=== PATIENT | female | born 1975 | race Caucasian/White ===

== ENCOUNTER 2020-01-09 18:07 | Emergency (ER) | payer OTHER, MEDICAID, SELFPAY ==
[2020-01-09] VITALS (7 sets, daily range): BP systolic 142–182; BP diastolic 79–106; PULSE 75–99; RESP 16–22; TEMP 37.3; O2SAT 95–98; BMI 24.0
--- NOTE | 2020-01-09 18:28 | ED.CHESTPAIN ---
HPI - Chest Pain General Chief Complaint: Chest Pain Stated Complaint: elevated blood pressure Time Seen by Provider: 01/09/20 18:13 Source: patient Mode of arrival: Ambulatory History of Present Illness HPI narrative: Chief complaint: Chest pain with hypertension and headache. History of present illness: The patient is a 44-year-old female with admits that she has been under lot of stress and anxious lately. She has a history of Troup's disease. She has developed hypertension over the last week associated with being lightheaded, difficulty finding her words, periods of confusion, and that her face has hurt to smile as well as her teeth aching associated with a headache and chest pain. She has developed some left arm discomfort associated with the headache. The patient was on fludrocortisone with the does decreased by her physical medicine specialist. She was diagnosed to have Troup's disease when she developed hypotension and had a positive ACTH stress test. She he denies a history of migraines, past history of headaches any fall or injury to her head or neck as well as asthma myocardial infarction heart murmur diabetes mellitus. She periodically has blurred vision but denies any loss of vision diplopia. She has had phonophobia with shortness of breath on exertion and walking nondescript chest pain palpitations and dizziness as well as nausea without vomiting diarrhea or change in bowel habits. She has had no urinary symptoms. Her primary care physician is Dr. Bray and her physical medicine specialist is . The patient complains that she has had pain in her left mouth especially sometimes when breathing through her nose she can feel the air moving it crossed her left maxillary and mandibular molars and it hurts to bite down. She has had no dental pathology and has never been evaluated for possible trigeminal neuralgia. Related Data Previous Rx's Medication Instructions Recorded hydrocortisone sod succ (PF) 100 mg IM SEE INSTRUCTIONS #2 bot 07/22/16 [Solu-Cortef Act-O-Vial (PF)] hydrocortisone [Cortef] 30 mg PO TIDCC #90 tab 02/02/18 ondansetron 4 mg disintegrating 4 mg PO Q6-8H PRN #20 tab 10/14/18 tablet fludrocortisone 0.1 mg tablet 0.2 mg PO QDAY #60 tab 10/07/19 lorazepam [Ativan] 0.5 mg PO TID PRN #15 tab 01/09/20 naproxen [Naprosyn] 500 mg PO BID PRN #20 tab 01/09/20 Allergies Allergy/AdvReac Type Severity Reaction Status Date / Time ciprofloxacin [CIPROFLOXACIN] Allergy Mild joint Verified 01/09/20 18:24 swelling and pain Review of Systems Review of Systems Narrative: The patient's review of systems were all negative except for those mentioned in the history of present illness. Patient History Surgical History History of anterior cruciate ligament surgery (Resolved 1993) Family History Father No problems noted. Mother No problems noted. Brother No problems noted. Sister No problems noted. Sister No problems noted. Grandfather Melanoma Cancer Skin cancer Grandmother No problems noted. Grandfather No problems noted. Grandmother No problems noted. Social History marital status: Smoking Status: Never smoker alcohol intake: current (ON OCCASION ) substance use type: does not use Smoking Status: Never smoker Exam Narrative Exam Narrative: PHYSICAL EXAM: CONSTITUTIONAL: Awake, Alert, Oriented, Coherent, Cooperative in NAD but very anxious. Does not appear toxic or ill. HEAD: AT/NC EENT: PERRL, FROM of eyes, no discharge, no nystagmus No drainage from the ears, Tympanic membranes intact bilaterally, clear EAC No epistaxis or nasal drainage Oral mucosa is moist and pink, posterior pharynx is without erythema or exudate. When she complained that her teeth were hurting the posterior 3 maxillary molars and mandibular molars all appear to be in good dental repair but were tender to touch and tapping with a tongue blade. There was no evidence of gingivitis. NECK: Supple, no obvious JVD, Trachea is midline without stridor, no palpable LN or masses. The patient had full range of motion of her neck to flexion extension right there was absolutely no nuchal rigidity. SPINE: No gross deformity, no palpable tenderness of the cervical, thoracic, lumbar or sacral spine. No CVA tenderness. THORAX: No deformity, retractions, chest wall tenderness, subcutaneous air or crepitice. LUNGS: Clear with symmetrical breath sounds without respiratory distress HEART: Normal heart tones, regular rhythm and rate without murmur. ABDOMEN: Soft, non-tender, normal bowel sounds without guarding, rebound, rigidity or palpable mass EXTREMITIES: No edema, cyanosis, deformity or tenderness. SKIN: No rash, bruising, petechiae or purpura. NEURO: Awake, alert, oriented, conversive, cranial nerves II-XII are symmetrical and normal, moves all 4 extremities and is ambulatory. Initial Vital Signs Initial Vital Signs: Vital Signs Temperature 99.2 F 01/09/20 18:24 Pulse Rate 79 01/09/20 18:24 Respiratory Rate 16 01/09/20 18:24 Blood Pressure 167/105 H 01/09/20 18:24 Pulse Oximetry 98 01/09/20 18:24 Course Course Course Narrative: 2156 the patient's chest x-ray is negative CT of her head is negative. The patient was complaining of her left jaw and teeth hurting. She states that when she breathes through her nose her teeth are hurting. A CT scan of the patient's facial bones were obtained. Tapping the posterior 3 molars over the maxilla and mandible were tender to palpation. There was no bony deformity erythema or warmth palpable. Her last blood pressure was significantly improved at 1145/85. CT of the facial bones have been completed however the report remains pending. I spoke with the patient's who states that she is under tremendous amount of stress. I explained that I believe most of these symptoms are secondary to acute anxiety. The patient asked if I thought they were due to anxiety and I informed her that I think that there is a big component of that. The plan is to not place the patient on any antihypertensive agents and have her follow-up with her primary care physician and physical medicine specialist. However I will probably prescribed a short course of Ativan for acute anxiety. I a.m. attempting to discharge the patient as soon as the CT scan is completed. Her strange facial complaints of pain and discomfort may be all secondary to anxiety but trigeminal neuralgia in needs to also be arm evaluated. 0136: The CT of the patient's facial bones, reveals no acute osseous abnormality. No sinusitis or periodontal disease. The patient will be started on Naprosyn 500 mg b.i.d. for pain and discomfort. She was advised to follow-up with her physical medicine specialist and primary care physician to monitor her blood pressure. She is to keep a log of when she checks her blood pressure and the associated symptoms. For her acute anxiety I will prescribe 0.5 mg of Ativan. Orders Ordered: Discontinued Medications Aspirin (Aspirin Chew) 324 mg PO NOW ONE Stop: 01/09/20 18:30 Last Admin: 01/09/20 18:51 Dose: 324 mg Documented by: SHARDA Hydralazine HCl (Apresoline) 2.5 mg IV NOW ONE Stop: 01/09/20 20:48 Last Admin: 01/09/20 21:38 Dose: 2.5 mg Documented by: SPENCER Sodium Chloride (Normal Saline 0.9%) 1,000 mls @ 150 mls/hr IV CONT IVAN Last Admin: 01/09/20 18:52 Dose: 150 mls/hr Documented by: SHARDA Ketorolac Tromethamine (Toradol) 30 mg IV NOW ONE Stop: 01/09/20 20:42 Last Admin: 01/09/20 21:35 Dose: 30 mg Documented by: SPENCER Lorazepam (Ativan) 0.5 mg IV NOW ONE Stop: 01/09/20 18:30 Last Admin: 01/09/20 18:51 Dose: 0.5 mg Documented by: SHARDA Lorazepam (Ativan) 0.5 mg IV NOW ONE Stop: 01/09/20 20:42 Last Admin: 01/09/20 21:35 Dose: 0.5 mg Documented by: SPENCER Vital Signs Vital signs: Vital Signs - 8 hr 01/09/20 18:24 01/09/20 18:39 01/09/20 19:00 Temperature 99.2 F Pulse Rate 79 Pulse Rate [Orthostatic Lying] 99 H Pulse Rate [Orthostatic Sitting] 85 Pulse Rate [Orthostatic Standing] 90 Respiratory Rate 16 Blood Pressure 167/105 H Blood Pressure [Left Arm] 165/100 H Blood Pressure [Orthostatic Lying] 162/95 H Blood Pressure [Orthostatic Sitting] 167/99 H Blood Pressure [Orthostatic Standing] 168/98 H Blood Pressure [Right Arm] 182/106 H Pulse Oximetry 98 01/09/20 19:44 01/09/20 21:38 01/09/20 21:48 Temperature Pulse Rate 85 85 75 Pulse Rate [Orthostatic Lying] Pulse Rate [Orthostatic Sitting] Pulse Rate [Orthostatic Standing] Respiratory Rate 21 16 Blood Pressure 147/85 H Blood Pressure [Left Arm] Blood Pressure [Orthostatic Lying] Blood Pressure [Orthostatic Sitting] Blood Pressure [Orthostatic Standing] Blood Pressure [Right Arm] 148/89 H 142/87 H Pulse Oximetry 95 97 01/09/20 22:30 Temperature Pulse Rate 84 Pulse Rate [Orthostatic Lying] Pulse Rate [Orthostatic Sitting] Pulse Rate [Orthostatic Standing] Respiratory Rate 22 Blood Pressure Blood Pressure [Left Arm] 142/79 H Blood Pressure [Orthostatic Lying] Blood Pressure [Orthostatic Sitting] Blood Pressure [Orthostatic Standing] Blood Pressure [Right Arm] Pulse Oximetry 97 MDM - Chest Pain Medical Records Data Attestation: I reviewed the patient's medical records. Lab Data Attestation: I reviewed the patient's lab results. Result diagrams: 01/09/20 18:30 01/09/20 18:30 Labs: Lab Results 01/09/20 01/09/20 01/09/20 Range/Units 18:30 18:30 18:30 WBC 11.5 H (4.5-11.0) X10^3/uL RBC 4.28 (4.0-5.2) X10^6/uL Hgb 13.3 (12.0-16.0) g/dL Hct 39.1 (36-46) % MCV 91.4 (80-100) fL MCH 31.1 (26-34) PG MCHC 34.0 (30-36) % RDW 12.5 (11.6-14.8) % Plt Count 298 (150-400) X10^3/uL Neut % (Auto) 79.9 H (50-75) % Lymph % (Auto) 12.3 L (25-40) % Swisher % (Auto) 7.0 (3-14) % Eos % (Auto) 0.3 L (2-4) % Baso % (Auto) 0.5 (0-2) % Neut # (Auto) 9200 H (5373-8098) /uL Lymph # (Auto) 1400 (4250-0249) /uL Swisher # (Auto) 800 (0-900) /uL Eos # (Auto) 0 (0-450) /uL Baso # (Auto) 100 (0-100) /uL ESR 7 (0-20) MM/HR Sodium 140 (137-145) mmol/L Potassium 4.0 (3.4-5.1) mmol/L Chloride 104 (98-107) mmol/L Carbon Dioxide 26 (22-32) mmol/L BUN 16 (7-17) mg/dL Creatinine 0.90 (0.52-1.04) mg/dL Estimated GFR > 60.0 (>60) mL/min BUN/Creatinine Ratio 17.8 (6-22) Glucose 116 H (70-100) mg/dL Calcium 9.6 (8.4-10.2) mg/dL Total Bilirubin 0.3 (0.2-1.3) mg/dL AST 24 (14-36) IU/L ALT 22 (<35) IU/L Alkaline Phosphatase 30 L (38-126) U/L Total Creatine Kinase 31 (30-135) U/L CK-MB (CK-2) TNP CK-MB (CK-2) Rel Index TNP Troponin I < 0.012 (0.01-0.034) ng/mL C-Reactive Protein (<1.0) mg/dL Total Protein 7.3 (6.3-8.2) g/dL Albumin 4.5 (3.5-5.0) g/dL Globulin 2.8 (1.7-4.1) g/dL Albumin/Globulin Ratio 1.6 (1.0-2.8) Lipase 103 (23-300) U/L 01/09/20 Range/Units 18:30 WBC (4.5-11.0) X10^3/uL RBC (4.0-5.2) X10^6/uL Hgb (12.0-16.0) g/dL Hct (36-46) % MCV (80-100) fL MCH (26-34) PG MCHC (30-36) % RDW (11.6-14.8) % Plt Count (150-400) X10^3/uL Neut % (Auto) (50-75) % Lymph % (Auto) (25-40) % Swisher % (Auto) (3-14) % Eos % (Auto) (2-4) % Baso % (Auto) (0-2) % Neut # (Auto) (3564-9199) /uL Lymph # (Auto) (5509-4492) /uL Swisher # (Auto) (0-900) /uL Eos # (Auto) (0-450) /uL Baso # (Auto) (0-100) /uL ESR (0-20) MM/HR Sodium (137-145) mmol/L Potassium (3.4-5.1) mmol/L Chloride (98-107) mmol/L Carbon Dioxide (22-32) mmol/L BUN (7-17) mg/dL Creatinine (0.52-1.04) mg/dL Estimated GFR (>60) mL/min BUN/Creatinine Ratio (6-22) Glucose (70-100) mg/dL Calcium (8.4-10.2) mg/dL Total Bilirubin (0.2-1.3) mg/dL AST (14-36) IU/L ALT (<35) IU/L Alkaline Phosphatase (38-126) U/L Total Creatine Kinase (30-135) U/L CK-MB (CK-2) CK-MB (CK-2) Rel Index Troponin I (0.01-0.034) ng/mL C-Reactive Protein < 0.5 (<1.0) mg/dL Total Protein (6.3-8.2) g/dL Albumin (3.5-5.0) g/dL Globulin (1.7-4.1) g/dL Albumin/Globulin Ratio (1.0-2.8) Lipase (23-300) U/L ECG Data Attestation: I personally reviewed and interpreted this ECG as follows: Interpretation: The patient's EKG of January 09 at 18:2 8:17 a.m. revealed a normal sinus rhythm with a ventricular rate of 72 intervals are normal QTC is 393 milliseconds. [place] is normal. The patient has inverted T-waves in leads III and V1. There are no other acute diagnostic ST segment changes noted. The rest of her EKG is normal there is no evidence of ischemia. Discharge Plan Departure Patient Disposition: Home Clinical Impression: Troup's disease, Atypical chest pain, Acute anxiety, Atypical facial pain Hypertension Qualifiers: Hypertension type: unspecified Qualified Code(s): I10 - Essential (primary) hypertension Discharge Date/Time: 01/09/20 23:16 Instructions: DI for Atypical Chest Pain, DI for Anxiety -- Adult, DI for Headache, DI for Chest Pain Activity Restrictions/Additional Instructions: Check your blood pressure only once. Do not frank and required multiple blood pressure is 1 after the other. Keep a log of your blood pressures and the associated symptoms: Headache change in vision backache, chest pain, shortness of breath, and facial pain. Follow-up with your physical medicine specialist and your primary care physician to manage your blood pressure. For acute stress and anxiety take the Ativan as prescribed. For acute pain and discomfort take the Naprosyn as prescribed. Otherwise take your medications as prescribed by your physical medicine specialist. Prescriptions: New naproxen [Naprosyn] 500 mg tablet 500 mg PO BID PRN (Reason: pain) Qty: 20 RF: 0 lorazepam [Ativan] 0.5 mg tablet 0.5 mg PO TID PRN (Reason: anxiety) Qty: 15 RF: 0 No Action hydrocortisone sod succ (PF) [Solu-Cortef Act-O-Vial (PF)] 100 MG/2 ML recon soln 100 mg IM SEE INSTRUCTIONS Qty: 2 RF: 0 hydrocortisone [Cortef] 10 MG tablet 30 mg PO TIDCC Qty: 90 RF: 3 ondansetron 4 mg tablet,disintegrating 4 mg PO Q6-8H PRN (Reason: nausea and vomiting) Qty: 20 RF: 0 fludrocortisone 0.1 mg tablet 0.2 mg PO QDAY Qty: 60 RF: 0 Referrals: Ranjit Jaramillo MD [Primary Care Provider] -
--- NOTE | 2020-01-09 18:29 | DI.CT.S_ITS ---
PROCEDURE: CT HEAD/BRAIN WO CON INDICATIONS: Hypertension with headache TECHNIQUE: Noncontrast 4.5 mm thick angled axial sections acquired from the foramen magnum to the vertex, with coronal and sagittal reformats. For radiation dose reduction, the following was used: automated exposure control, adjustment of mA and/or kV according to patient size. COMPARISON: None. FINDINGS: Image quality: Excellent. CSF spaces: Basal cisterns are patent. No extra-axial fluid collections. Ventricles are normal in size and shape. Brain: No midline shift. No intracranial masses or hemorrhage. Mcgowan-white matter interface is normal. Skull and face: Calvarium and visualized facial bones are intact, without suspicious lesions. Sinuses: Visualized sinuses and mastoids are clear. IMPRESSION: Normal head CT. Dictated by: Jimbo Gallegos M.D. on 01/09/2020 at 18:59 Approved by: Jimbo Gallegos M.D. on 01/09/2020 at 19:00
--- NOTE | 2020-01-09 18:32 | DI.RAD.S_ITS ---
PROCEDURE: XR CHEST 2V INDICATIONS: Addisons disease, Hypertension, Chest Pain, SOB Headache TECHNIQUE: 2 views of the chest were acquired. COMPARISON: None. FINDINGS: Surgical changes and devices: None. Lungs and pleura: Lungs are clear. No pleural effusions or pneumothorax. Mediastinum: Mediastinal contours are normal. Heart size is normal. Bones and chest wall: No suspicious bony abnormalities. Soft tissues appear unremarkable. IMPRESSION: No acute cardiopulmonary disease. Dictated by: Jimbo Gallegos M.D. on 01/09/2020 at 19:00 Approved by: Jimbo Gallegos M.D. on 01/09/2020 at 19:00
[2020-01-09 18:42] LABS: Add Manual Diff / Slide Review NO; Basophils Absolute Auto 100 /uL (0-100); Basophils Percent Auto 0.5 % (0-2); Eosinophils Absolute Auto 0 /uL (0-450); Eosinophils Percent Auto 0.3 % (2-4); Hematocrit 39.1 % (36-46); Hemoglobin 13.3 g/dL (12.0-16.0); Lymphocytes Absolute Auto 1400 /uL (1100-4500); Lymphocytes Percent Auto 12.3 % (25-40); Mean Corpuscular Hemoglobin 31.1 PG (26-34); Mean Corpuscular Volume 91.4 fL (80-100); Monocytes Absolute Auto 800 /uL (0-900); Neutrophils Absolute Auto 9200 /uL (1500-7000); Neutrophils Percent Auto 79.9 % (50-75); Platelet Count 298 X10^3/uL (150-400); Red Blood Cell Count 4.28 X10^6/uL (4.0-5.2); Red Cell Distribution Width 12.5 % (11.6-14.8); White Blood Cell Count 11.5 X10^3/uL (4.5-11.0)
[2020-01-09] MEDS: ASPIRIN 81 MG CHEW TAB 324 MG PO (18:51)
[2020-01-09] MEDS: LORazepam 2 MG/ML INJ 0.5 MG IV ×2 (18:51→21:35)
[2020-01-09] MEDS: SODIUM CHLORIDE 0.9% 1,000 ML 150 ML IV (18:52)
[2020-01-09 18:58] LABS: Alanine Aminotransferase 22 IU/L (<35); Albumin 4.5 g/dL (3.5-5.0); Albumin Globulin Ratio 1.6 (1.0-2.8); Alkaline Phosphatase 30 U/L (38-126); Aspartate Aminotransferase 24 IU/L (14-36); BUN Creatinine Ratio 17.8 (6-22); Bilirubin Total 0.3 mg/dL (0.2-1.3); Blood Urea Nitrogen 16 mg/dL (7-17); Calcium 9.6 mg/dL (8.4-10.2); Carbon Dioxide 26 mmol/L (22-32); Chloride 104 mmol/L (98-107); Creatine Kinase 31 U/L (30-135); Estimated Glomerular Filt Rate > 60.0 mL/min (>60); Globulin 2.8 g/dL (1.7-4.1); Glucose 116 mg/dL (70-100); HEMOLYSIS < 15 (0-50); Lipase 103 U/L (23-300); Sodium 140 mmol/L (137-145); Total Protein 7.3 g/dL (6.3-8.2)
[2020-01-09 19:10] LABS: Troponin I < 0.012 ng/mL (0.01-0.034)
--- NOTE | 2020-01-09 20:44 | DI.CT.S_ITS ---
PROCEDURE: CT FACIAL BONES W CON INDICATIONS: servere left jawpain. left max and frandy molar pain and tnder TECHNIQUE: After the administration of intravenous contrast, 2.5 mm axial sections acquired from the mid-neck to the frontal sinuses, with coronal and sagittal reformats. For radiation dose reduction, the following was used: automated exposure control, adjustment of mA and/or kV according to patient size. COMPARISON: None. FINDINGS: Image quality: Excellent. Soft tissues: No edema, masses, or fluid collections. No enlarged lymph nodes. Vascular: Visualized vascular structures appear patent throughout. Bony vascular foramina and canals appear normal. Bones: Facial bones appear intact, without fractures, erosions, or destruction. Visualized portions of the skull base and auditory canals also appear normal. Sinuses: Paranasal sinuses are aerated without fluid levels, mucosal thickening, or mucoceles. Mastoid air cells are aerated. IMPRESSION: No acute osseous abnormalities. Dictated by: Jimbo Gallegos M.D. on 01/09/2020 at 22:24 Approved by: Jimbo Gallegos M.D. on 01/09/2020 at 22:27
[2020-01-09 21:11] LABS: Erythrocyte Sedimentation Rate 7 MM/HR (0-20)
[2020-01-09 21:12] LABS: C-Reactive Protein Quant < 0.5 mg/dL (<1.0)
[2020-01-09] MEDS: KETOROLAC 60 MG/2 ML VIAL 30 MG IV (21:35)
[2020-01-09] MEDS: HYDRALAZINE 20 MG/ML VIAL 2.5 MG IV (21:38)
--- NOTE | 2020-01-17 13:28 | PC.NURSE ---
NS 150ml/hr inf stopped at time of discharge 2315 vol infused 600mls
== END 2020-01-09 23:16 | disposition home or self-care (01) ==
LOC: ED 18:36
PROVIDERS: Emergency Provider Emergency Medicine; PCP Family Medicine
DX: E27.1 Primary adrenocortical insufficiency (principal); R07.89 Other chest pain; F41.9 Anxiety disorder, unspecified; G50.1 Atypical facial pain; I10 Essential (primary) hypertension
CPT/HCPCS: 36415; 70450; 70487; 71046; 80053; 82550; 83690; 84484; 85025; 85651; 86140; 93005; 96361; 96374; 96375; 96376; 99285; J0360; J1885; J2060; Q9967

== ENCOUNTER → 2021-01-17 11:24 | Outpatient (CLI) | payer OTHER, MEDICAID, SELFPAY ==
[2021-01-17 12:36] LABS: COVID19 -Nasal RAPID Negative (Negative)
== END ==
PROVIDERS: PCP Family Medicine; Visit Provider Family Medicine
DX: Z20.822 Contact with and (suspected) exposure to COVID-19 (principal)
CPT/HCPCS: 87635

== ENCOUNTER → 2021-02-13 16:55 | Outpatient (CLI) | payer OTHER, MEDICAID, SELFPAY ==
[2021-02-13 17:11] LABS: Add Manual Diff / Slide Review NO; Basophils Absolute Auto 100 /uL (0-100); Eosinophils Absolute Auto 200 /uL (0-450); Eosinophils Percent Auto 2.6 % (2-4); Hematocrit 34.8 % (36-46); Hemoglobin 11.7 g/dL (12.0-16.0); Lymphocytes Absolute Auto 2000 /uL (1100-4500); Lymphocytes Percent Auto 32.1 % (25-40); Mean Corpuscular HGB Conc 33.7 % (30-36); Mean Corpuscular Hemoglobin 30.5 PG (26-34); Mean Corpuscular Volume 90.4 fL (80-100); Monocytes Absolute Auto 600 /uL (0-900); Monocytes Percent Auto 9.4 % (3-14); Neutrophils Absolute Auto 3400 /uL (1500-7000); Neutrophils Percent Auto 54.9 % (50-75); Platelet Count 252 X10^3/uL (150-400); Red Blood Cell Count 3.85 X10^6/uL (4.0-5.2); Red Cell Distribution Width 13.6 % (11.6-14.8); White Blood Cell Count 6.2 X10^3/uL (4.5-11.0)
== END ==
PROVIDERS: PCP Family Medicine; Referring Provider Obstetrics & Gynecology; Visit Provider Obstetrics & Gynecology
DX: N92.0 Excessive and frequent menstruation with regular cycle (principal)
CPT/HCPCS: 36415; 85025

== ENCOUNTER → 2021-02-15 11:00 | Outpatient (CLI) | payer OTHER, MEDICAID, SELFPAY ==
[2021-02-15 12:56] LABS: Free T4, Direct Thyroxine 1.16 ng/dL (0.78-2.19)
[2021-02-15 13:10] LABS: Thyroid Stimulating Hormone 0.994 uIU/mL (0.47-4.68)
== END ==
PROVIDERS: PCP Family Medicine; Referring Provider Obstetrics & Gynecology; Visit Provider Obstetrics & Gynecology
DX: N93.9 Abnormal uterine and vaginal bleeding, unspecified (principal)
CPT/HCPCS: 36415; 84439; 84443

== ENCOUNTER → 2021-02-22 14:13 | Outpatient (CLI) | payer OTHER, MEDICAID, SELFPAY ==
[2021-02-22 14:42] LABS: COVID19 -Nasal RAPID Negative (Negative)
== END ==
PROVIDERS: PCP Family Medicine; Visit Provider Physician Assistant
DX: Z20.822 Contact with and (suspected) exposure to COVID-19 (principal)
CPT/HCPCS: 87635

== ENCOUNTER 2021-03-23 11:00 | Emergency (ER) | payer OTHER, MEDICAID, SELFPAY ==
[2021-03-23] VITALS (7 sets, daily range): BP systolic 118–144; BP diastolic 63–82; PULSE 58–83; RESP 13–22; TEMP 36.7; O2SAT 95–100; BMI 21.4
[2021-03-23] MEDS: SODIUM CHLORIDE 0.9% 1,000 ML 1000 ML IV (11:26)
[2021-03-23] MEDS: METOCLOPRAMIDE 10 MG/2 ML INJ IV (11:27)
[2021-03-23] MEDS: diphenhydrAMINE 50 MG/ML VIAL 25 MG IV (11:28)
[2021-03-23] MEDS: KETOROLAC 60 MG/2 ML VIAL 15 MG IV (11:29)
--- NOTE | 2021-03-23 12:02 | DI.CT.S_ITS ---
PROCEDURE: CT HEAD/BRAIN WO CON INDICATIONS: worst headache of live TECHNIQUE: Noncontrast 4.5 mm thick angled axial sections acquired from the foramen magnum to the vertex, with coronal and sagittal reformats. For radiation dose reduction, the following was used: automated exposure control, adjustment of mA and/or kV according to patient size. COMPARISON: [facility], CT, CT HEAD/BRAIN WO CON, 01/09/2020, 18:39. FINDINGS: Image quality: Excellent. CSF spaces: Basal cisterns are patent. No extra-axial fluid collections. Ventricles are normal in size and shape. Brain: No midline shift. No intracranial masses or hemorrhage. Mcgowan-white matter interface is normal. Skull and face: Calvarium and visualized facial bones are intact, without suspicious lesions. Sinuses: Visualized sinuses and mastoids are clear. IMPRESSION: No acute intracranial hemorrhage is seen. No acute intracranial process is seen. Dictated by: Dennis Arrington M.D. on 03/23/2021 at 12:01 Approved by: Dennis Arrington M.D. on 03/23/2021 at 12:02
[2021-03-23 12:14] LABS: Add Manual Diff / Slide Review NO; Basophils Absolute Auto 0 /uL (0-100); Basophils Percent Auto 0.7 % (0-2); Eosinophils Absolute Auto 0 /uL (0-450); Eosinophils Percent Auto 0.4 % (2-4); Hematocrit 37.3 % (36-46); Hemoglobin 12.6 g/dL (12.0-16.0); Lymphocytes Absolute Auto 1900 /uL (1100-4500); Mean Corpuscular HGB Conc 33.8 % (30-36); Mean Corpuscular Hemoglobin 30.5 PG (26-34); Mean Corpuscular Volume 90.2 fL (80-100); Monocytes Absolute Auto 600 /uL (0-900); Monocytes Percent Auto 8.9 % (3-14); Neutrophils Absolute Auto 4300 /uL (1500-7000); Platelet Count 279 X10^3/uL (150-400); Red Blood Cell Count 4.14 X10^6/uL (4.0-5.2); Red Cell Distribution Width 13.3 % (11.6-14.8); White Blood Cell Count 6.9 X10^3/uL (4.5-11.0)
[2021-03-23 12:21] LABS: Alanine Aminotransferase 19 IU/L (<35); Albumin 4.2 g/dL (3.5-5.0); Albumin Globulin Ratio 1.5 (1.0-2.8); Alkaline Phosphatase 27 U/L (38-126); Aspartate Aminotransferase 23 IU/L (14-36); BUN Creatinine Ratio 23.7 (6-22); Bilirubin Total 0.1 mg/dL (0.2-1.3); Blood Urea Nitrogen 14 mg/dL (7-17); Calcium 9.2 mg/dL (8.4-10.2); Carbon Dioxide 21 mmol/L (22-32); Chloride 108 mmol/L (98-107); Estimated Glomerular Filt Rate > 60.0 mL/min (>60); Globulin 2.8 g/dL (1.7-4.1); Glucose 107 mg/dL (70-100); HEMOLYSIS < 15 (0-50); Potassium 3.9 mmol/L (3.4-5.1); Sodium 135 mmol/L (137-145)
[2021-03-23 12:29] LABS: Pregnancy Test Serum,Qual Negative (Negative)
--- NOTE | 2021-03-23 13:27 | ED_ITS ---
HPI - Headache General Chief Complaint: Headache Stated Complaint: WOKE UP WITH MIGRAINE, VOMITING Time Seen by Provider: 03/23/21 11:14 Source: patient Mode of arrival: Family Vehicle Limitations: no limitations History of Present Illness HPI Narrative: Patient is a 45-year-old female history of [place]'s disease p resenting with worst headache of her life that started at 4:00 a.m. this morning. His she says it woke her from her sleep and is quite painful she is sensitive to light she feels nauseous. She says that she forgot to take her flurocortisone yesterday, however she took extra prednisone this morning to she was under stress along with the fludrocortisone. She denies any fever or chills. No numbness tingling or weakness. Just severe headache with some mild neck pain as well. She denies any nausea or vomiting MD Complaint: headache Onset description: sudden and awoke with symptoms Severity: severe Quality: constant Exacerbating factors: light and noise Related Data Home Medications Medication Instructions Recorded Confirmed prednisone 5 mg tablet 5 mg PO BID tab 02/15/21 03/23/21 Previous Rx's Medication Instructions Recorded fludrocortisone 0.1 mg tablet 0.2 mg PO QDAY #60 tab 10/07/19 lorazepam [Ativan] 0.5 mg PO TID PRN #15 tab 01/09/20 naproxen [Naprosyn] 500 mg PO BID PRN #20 tab 01/09/20 medroxyprogesterone 10 mg tablet 10 mg PO .COMPLEX #90 tab 02/13/21 Allergies Allergy/AdvReac Type Severity Reaction Status Date / Time ciprofloxacin [CIPROFLOXACIN] Allergy Mild joint Verified 03/23/21 13:47 swelling and pain Review of Systems Review of Systems Narrative: GENERAL: Denies chills, fatigue, malaise, fever, sweats, travel HEENT: Denies sinus pain, ear pain, sore throat, difficulty swallowing, neck pain RESPIRATORY: Denies dyspnea, cough, wheezing, hemoptysis, sputum. CARDIOVASCULAR: Denies chest pain, palpitations, orthopnea, edema GASTROINTESTINAL: Denies nausea, vomiting, abdominal pain, diarrhea, constipation, melena. : Denies dysuria, frequency, incontinence, hematuria, urinary retention, flank pain. MUSCULOSKELETAL: Denies weakness, joint pain, or bony pain SKIN: No rash, no erythema, no pruritus NEUROLOGIC:+ see HPI PSYCHIATRIC: No concerning psychosocial issues. 12 point review of systems is negative except for those stated above and HPI Patient History Medical History (Updated 03/23/21 @ 13:36 by Justine Vega DO) [place]'s disease Adrenal insufficiency (2010) Chicken pox (1989) CTS (carpal tunnel syndrome) (1991) Dysplastic nevus syndrome (1994) Plantar warts Surgical History History of anterior cruciate ligament surgery (1993) Family History Father No problems noted. Mother No problems noted. Brother No problems noted. Sister No problems noted. Sister No problems noted. Grandfather Melanoma Cancer Skin cancer Grandmother No problems noted. Grandfather No problems noted. Grandmother No problems noted. Social History marital status: Smoking Status: Never smoker alcohol intake: current substance use type: does not use Smoking Status: Never smoker alcohol intake frequency: 0-2 drinks per day Substance Use Type: does not use Exam Initial Vital Signs Initial Vital Signs: Vital Signs Temperature 98.1 F 03/23/21 11:14 Pulse Rate 83 03/23/21 11:14 Respiratory Rate 22 03/23/21 11:14 Blood Pressure 144/82 H 03/23/21 11:14 Pulse Oximetry 98 03/23/21 11:14 GENERAL: Alert 45-year-old female in dark room appears in pain and in no acute distress. HEENT: Head atraumatic,EOMI, pupils reactive, face symmetric, moist mucous membranes NECK: The neck is supple no Kernig or Brudzinski sign CARDIOVASCULAR: Regular rate and rhythm without murmurs, rubs or gallops. RESPIRATORY: Breath sounds equal bilaterally, no wheezes rales or rhonchi. ABDOMEN: Soft, nontender. Normoactive bowel sounds all 4 quadrants. No guarding or rebound. EXTREMITIES: Normal range of motion, no clubbing or edema. Neurovascularly intact NEUROLOGICAL: Alert and oriented x4.Normal gait and speech. Cranial nerves II through XII grossly intact. Manager Parking strength equal bilaterally able to move lower extremities SKIN: Warm, dry, no laceration, no petechiae, no rashes or lesions. Scores NIH Stroke Scale Level of Conciousness: Alert, keenly responsive Ask month/age: Answers both questions correctly. Open/close eyes, close hand: Performs both tasks correctly Best gaze horizontal: Normal Visual le: No visual loss Facial palsy: Normal symetrical movement Left arm drift: No drift for full 10 sec Right arm drift: No drift for full 10 sec Left leg drift: No drift for full 5 sec Right leg drift: No drift for full 5 sec Limb ataxia: Absent Sensory on face/arms/legs: Normal, no sensory loss Best language: No aphasia, normal Dysarthria: Normal Extinction or inattention: No abnormality Total NIH Stroke scale score: 0 Course Orders Ordered: ED Orders 03/23/21 11:19 Complete Blood Count AUTO DIFF Stat Comprehensive Metabolic Panel Stat Test Serum,Qual Stat 03/23/21 12:02 CT head/brain wo con Stat Discontinued Medications Diphenhydramine HCl (Diphenhydramine 50 Mg/Ml Vial) 25 mg IV NOW ONE Stop: 03/23/21 11:15 Last Admin: 03/23/21 11:28 Dose: 25 mg Documented by: MICHI Sodium Chloride (Normal Saline 0.9%) 1,000 mls @ 1,000 mls/hr IV BOLUS ONE Stop: 03/23/21 12:13 Last Infusion: 03/23/21 12:29 Dose: 0 mls/hr Documented by: Admin: 03/23/21 11:26 Dose: 1,000 mls/hr Documented by: MICHI Ketorolac Tromethamine (Ketorolac 60 Mg/2 Ml Vial) 15 mg IV NOW ONE Stop: 03/23/21 11:15 Last Admin: 03/23/21 11:29 Dose: 15 mg Documented by: MICHI Metoclopramide HCl (Metoclopramide 10 Mg/2 Ml Inj) 10 mg IV NOW ONE Stop: 03/23/21 11:15 Last Admin: 03/23/21 11:27 Dose: 10 mg Documented by: MICHI Vital Signs Vital signs: Vital Signs - 8 hr 03/23/21 11:14 03/23/21 11:40 03/23/21 12:00 Temperature 98.1 F Pulse Rate 83 76 77 Respiratory Rate 22 20 Blood Pressure 144/82 H Pulse Oximetry 98 100 100 03/23/21 12:53 03/23/21 13:00 03/23/21 13:30 Temperature Pulse Rate 74 58 L 59 L Respiratory Rate 13 20 22 Blood Pressure Pulse Oximetry 95 97 96 03/23/21 13:40 Temperature Pulse Rate 73 Respiratory Rate 19 Blood Pressure 118/63 Pulse Oximetry 96 MDM - Headache Lab Data Attestation: I reviewed the patient's lab results. Result diagrams: 03/23/21 11:19 03/23/21 11:19 Labs: Lab Results 03/23/21 03/23/21 03/23/21 Range/Units 11:19 11:19 11:19 WBC 6.9 (4.5-11.0) X10^3/uL RBC 4.14 (4.0-5.2) X10^6/uL Hgb 12.6 (12.0-16.0) g/dL Hct 37.3 (36-46) % MCV 90.2 (80-100) fL MCH 30.5 (26-34) PG MCHC 33.8 (30-36) % RDW 13.3 (11.6-14.8) % Plt Count 279 (150-400) X10^3/uL Neut % (Auto) 62.0 (50-75) % Lymph % (Auto) 28.0 (25-40) % [place] % (Auto) 8.9 (3-14) % Eos % (Auto) 0.4 L (2-4) % Baso % (Auto) 0.7 (0-2) % Neut # (Auto) 4300 (9125-2263) /uL Lymph # (Auto) 1900 (0641-9452) /uL [place] # (Auto) 600 (0-900) /uL Eos # (Auto) 0 (0-450) /uL Baso # (Auto) 0 (0-100) /uL Sodium 135 L (137-145) mmol/L Potassium 3.9 (3.4-5.1) mmol/L Chloride 108 H (98-107) mmol/L Carbon Dioxide 21 L (22-32) mmol/L BUN 14 (7-17) mg/dL Creatinine 0.59 (0.52-1.04) mg/dL Estimated GFR > 60.0 (>60) mL/min BUN/Creatinine Ratio 23.7 H (6-22) Glucose 107 H (70-100) mg/dL Calcium 9.2 (8.4-10.2) mg/dL Total Bilirubin 0.1 L (0.2-1.3) mg/dL AST 23 (14-36) IU/L ALT 19 (<35) IU/L Alkaline Phosphatase 27 L (38-126) U/L Total Protein 7.0 (6.3-8.2) g/dL Albumin 4.2 (3.5-5.0) g/dL Globulin 2.8 (1.7-4.1) g/dL Albumin/Globulin Ratio 1.5 (1.0-2.8) Serum , Qual Negative (Negative) Point of Care Testing Test Results Negative Glucose POC 112 Urine Dip Bedside Urine Glucose Negative Bedside Urine Bilirubin - Negative Bedside Urine Ketone - Negative Urine Specific [place] 1.025 Bedside Urine Occult Blood - Negative Bedside Urine pH 6 Bedside Urine Protein - Negative Bedside Urine Urobilinogen - Negative Bedside Urine Nitrite - Negative Bedside Urine Leukocytes - Negative Esterase Imaging Data CT scan - head: Radiologist's Impression: PROCEDURE: CT HEAD/BRAIN WO CON INDICATIONS: worst headache of live TECHNIQUE: Noncontrast 4.5 mm thick angled axial sections acquired from the foramen magnum to the vertex, with coronal and sagittal reformats. For radiation dose reduction, the following was used: automated exposure control, adjustment of mA and/or kV according to p atient size. COMPARISON: [facility], CT, CT HEAD/BRAIN WO CON, 01/09/2020, 18:39. FINDINGS: Image quality: Excellent. CSF spaces: Basal cisterns are patent. No extra-axial fluid collections. Ventricles are normal in size and shape. Brain: No midline shift. No intracranial masses or hemorrhage. [place]-white matter interface is normal. Skull and face: Calvarium and visualized facial bones are intact, without suspicious lesions. Sinuses: Visualized sinuses and mastoids are clear. IMPRESSION: No acute intracranial hemorrhage is seen. No acute intracranial process is seen. Dictated by: Dennis Arrington M.D. on 03/23/2021 at 12:01 MDM Narrative Medical decision making narrative: The patient is feeling significantly better after migraine cocktail. Worst headache of her life concern for subarachnoid however CT is negative. Pain continues to improve with medication and she is overall better and ready and able to go. She has no neurologic deficits. She states that she did miss 1 of her medications yesterday unknown if it is related to her headache. Discharge Plan Departure Patient Disposition: Home Clinical Impression: Migraine Instructions: DI for Migraine Activity Restrictions/Additional Instructions: *You have been diagnosed with migraine headache *What to do: At this time he likely had a migraine headache. His head CT blood work are overall reassuring. Recommend going home and resting today *Continue to take medications as directed Tylenol 1000 mg every 6 hours if needed for [id number] pain *Follow up with your primary care provider in 2-3 days *Return to ER if you should have worsening headache persistent vomiting or any new, worsening or concerning symptoms Prescriptions: No Action fludrocortisone 0.1 mg tablet 0.2 mg PO QDAY Qty: 60 RF: 0 medroxyprogesterone 10 mg tablet 10 mg PO .COMPLEX Qty: 90 RF: 1 prednisone 5 mg tablet 5 mg PO BID RF: 0 naproxen [Naprosyn] 500 mg tablet 500 mg PO BID PRN (Reason: pain) Qty: 20 RF: 0 lorazepam [Ativan] 0.5 mg tablet 0.5 mg PO TID PRN (Reason: anxiety) Qty: 15 RF: 0 Referrals: Ranjit Jaramillo MD [Primary Care Provider] -
== END 2021-03-23 13:48 | disposition home or self-care (01) ==
PROVIDERS: Emergency Provider Emergency Medicine; PCP Family Medicine
DX: G43.909 Migraine, unspecified, not intractable, without status migrainosus (principal)
CPT/HCPCS: 36415; 70450; 80053; 81003; 81025; 82962; 84703; 85025; 96361; 96374; 96375; 99284; J1200; J1885; J2765

== ENCOUNTER 2021-06-30 05:22 | Emergency (ER) | payer OTHER, MEDICAID, SELFPAY ==
[2021-06-30 05:33] VITALS: BP 175/103; PULSE 72; RESP 22; TEMP 36.2; O2SAT 97; BMI 22.1
--- NOTE | 2021-06-30 06:03 | ED_ITS ---
HPI - Headache General Chief Complaint: Headache Stated Complaint: states migraine since 2 am Time Seen by Provider: 06/30/21 05:40 Mode of arrival: Ambulatory Limitations: no limitations History of Present Illness HPI Narrative: 45-year-old woman with a history of [place]'s disease and chronic migraine presents with worsening migraine. This headache started yesterday and continued to build throughout the day until at 2:00 a.m. it became significantly worse. She is noting no new symptoms beyond what her typical migraines are. She describes no recent fevers, cough, chills, abdominal pain, diarrhea. This point nausea is increasing to the point that she is worried she is going to vomit. She did take all of her usual medications including her fludrocortisone prior to arrival and wants to make sure that she does not vomit them up. Related Data Home Medications Medication Instructions Recorded Confirmed prednisone 5 mg tablet 5 mg PO BID tab 02/15/21 03/23/21 Previous Rx's Medication Instructions Recorded fludrocortisone 0.1 mg tablet 0.2 mg PO QDAY #60 tab 10/07/19 lorazepam 0.5 mg tablet (Ativan) 0.5 mg PO TID PRN #15 tab 01/09/20 naproxen 500 mg tablet (Naprosyn) 500 mg PO BID PRN #20 tab 01/09/20 medroxyprogesterone 10 mg tablet 10 mg PO .COMPLEX #90 tab 02/13/21 Allergies Allergy/AdvReac Type Severity Reaction Status Date / Time ciprofloxacin [CIPROFLOXACIN] Allergy Mild joint Verified 03/23/21 13:47 swelling and pain Review of Systems Review of Systems Narrative: Remainder of complete review of systems is otherwise unremarkable except for that included in the HPI. Patient History Medical History (Updated 06/30/21 @ 07:36 by Alexus Lai MD) [place]'s disease Adrenal insufficiency (2010) Chicken pox (1989) CTS (carpal tunnel syndrome) (1991) Dysplastic nevus syndrome (1994) Migraine headache Plantar warts Surgical History History of anterior cruciate ligament surgery (1993) Family History Father No problems noted. Mother No problems noted. Brother No problems noted. Sister No problems noted. Sister No problems noted. Grandfather Melanoma Cancer Skin cancer Grandmother No problems noted. Grandfather No problems noted. Grandmother No problems noted. Social History marital status: Smoking Status: Never smoker alcohol intake: current substance use type: does not use Smoking Status: Never smoker alcohol intake frequency: 0-2 drinks per day Substance Use Type: does not use Exam Narrative Exam Narrative: General: Healthy appearing, in no acute distress. Able to give a complete and coherent history. Well-nourished well-developed HEENT: Moist mucous membranes, normal sclera with reactive pupils, Respiratory: Lungs are clear to auscultation, no wheezing no rales no rhonchi. Full and symmetrical air movement Cardiac: Regular rate and rhythm no murmurs no bruits Abdomen: Soft, nontender, good bowel tones, no flank pain Skin: Warm and dry, no rashes Neurologic: Grossly neurologically intact with no obvious asymmetries or abnormalities Extremities: No trauma, well perfused Psych: Cooperative, appropriate insight and affect Initial Vital Signs Initial Vital Signs: Vital Signs Temperature 97.1 F L 06/30/21 05:33 Pulse Rate 72 06/30/21 05:33 Respiratory Rate 22 06/30/21 05:33 Blood Pressure 175/103 H 06/30/21 05:33 Pulse Oximetry 97 06/30/21 05:33 Course Orders Ordered: Discontinued Medications Diphenhydramine HCl (Diphenhydramine 50 Mg/Ml Vial) 25 mg IV NOW ONE Stop: 06/30/21 06:05 Last Admin: 06/30/21 06:18 Dose: 25 mg Documented by: SPENCER Hydrocortisone (Hydrocortisone 100 Mg/2 Ml Vial) 100 mg IV NOW ONE Stop: 06/30/21 06:10 Last Admin: 06/30/21 06:19 Dose: 100 mg Documented by: SPENCER Sodium Chloride (Normal Saline 0.9%) 1,000 mls @ 1,000 mls/hr IV BOLUS ONE Stop: 06/30/21 07:03 Last Infusion: 06/30/21 07:20 Dose: 0 mls/hr Documented by: Admin: 06/30/21 06:18 Dose: 1,000 mls/hr Documented by: SPENCER Ketorolac Tromethamine (Ketorolac 30 Mg/Ml Vial) 15 mg IV NOW ONE Stop: 06/30/21 06:05 Last Admin: 06/30/21 06:19 Dose: 15 mg Documented by: SPENCER Metoclopramide HCl (Metoclopramide 10 Mg/2 Ml Inj) 10 mg IV NOW ONE Stop: 06/30/21 06:05 Last Admin: 06/30/21 06:18 Dose: 10 mg Documented by: SPENCER Vital Signs Vital signs: Vital Signs - 8 hr 06/30/21 05:33 Temperature 97.1 F L Pulse Rate 72 Respiratory Rate 22 Blood Pressure 175/103 H Pulse Oximetry 97 MDM - Headache MDM Narrative Medical decision making narrative: 45-year-old woman with severe migraine usual presentation with no new or concerning symptoms. No recent headache to suggest infection. No neurologic complaints aside from the severe headache. She does note that the headaches have been getting worse over the past year and she isn't entirely sure why. She did not take a stress dose of hydrocortisone however will be given this given the severity of the headache at this point and her history of [place]'s disease. Migraine cocktail of 1 L of normal saline, Reglan, IV Benadryl at 25 mg, Toradol at 15 mg and 100 mg of hydrocortisone are administered. Pain was significantly improved and patient was safe for home discharge Discharge Plan Departure Patient Disposition: Home Clinical Impression: [place]'s disease Migraine Qualifiers: Migraine type: unspecified Status migrainosus presence: without status migrainosus Intractability: not intractable Qualified Code(s): G43.909 - Migraine, unspecified, not intractable, without status migrainosus Instructions: DI for Migraine Activity Restrictions/Additional Instructions: Thank you for coming in today I am sorry that your headaches are getting worse. In the emergency room your given saline, Benadryl, Toradol, Reglan and a stress dose of hydrocortisone. I hope that you are able to go home and get some sleep today. Regarding her headaches, it may be worth talking to Dr. Jaramillo about adding a daily prophylactic migraine medication. I wish you the best Prescriptions: No Action fludrocortisone 0.1 mg tablet 0.2 mg PO QDAY Qty: 60 RF: 0 medroxyprogesterone 10 mg tablet 10 mg PO .COMPLEX Qty: 90 RF: 1 prednisone 5 mg tablet 5 mg PO BID RF: 0 naproxen [Naprosyn] 500 mg tablet 500 mg PO BID PRN (Reason: pain) Qty: 20 RF: 0 lorazepam [Ativan] 0.5 mg tablet 0.5 mg PO TID PRN (Reason: anxiety) Qty: 15 RF: 0 Referrals: Ranjit Jaramillo MD [Primary Care Provider] -
[2021-06-30] MEDS: SODIUM CHLORIDE 0.9% 1,000 ML 1000 ML IV (06:18)
[2021-06-30] MEDS: diphenhydrAMINE 50 MG/ML VIAL 25 MG IV (06:18)
[2021-06-30] MEDS: METOCLOPRAMIDE 10 MG/2 ML INJ IV (06:18)
[2021-06-30] MEDS: HYDROCORTISONE 100 MG/2 ML VIAL IV (06:19)
[2021-06-30] MEDS: KETOROLAC 30 MG/ML VIAL 15 MG IV (06:19)
[2021-06-30 07:42] VITALS: BP 124/79; PULSE 73; RESP 20; O2SAT 99
== END 2021-06-30 07:44 | disposition home or self-care (01) ==
PROVIDERS: Emergency Provider Emergency Medicine; PCP Family Medicine
DX: E27.1 Primary adrenocortical insufficiency (principal); G43.909 Migraine, unspecified, not intractable, without status migrainosus; R11.0 Nausea
CPT/HCPCS: 96361; 96374; 96375; 99283; 99284; J1200; J1720; J1885; J2765